=== PATIENT | male | born 1945 | race Caucasian/White ===

== ENCOUNTER 2019-03-12 15:25 | Outpatient (CLI) | payer MEDICARE, OTHER | END 2019-03-12 15:26 | disposition critical access hospital (66) | LOC: EMS 15:25 | PROVIDERS: ATTEND Surgery | DX: R20.2 Paresthesia of skin (principal); R47.9 Unspecified speech disturbances | CPT/HCPCS: A0425; A0427 ==

== ENCOUNTER 2019-03-12 15:40 | Emergency (ER) | payer MEDICARE, OTHER ==
--- NOTE | 2019-03-12 15:43 | ED Physician Documentation ---
History of Present Illness - Stated complaint Stated Complaint: R FACIAL NUMBNESS - History obtained from History obtained from: Patient - History of Present Illness Timing: Prior to arrival - Additonal information Additional information: Patient is a 73-year-old male with history of cardiac murmur, aortic valve disorder, and peripheral vascular disease with stent placed in right lower extremity presenting with concern for stroke symptoms just prior to arrival. Patient denies any inciting incident, trauma, or fall. At 230 this afternoon patient noted subjective right arm numbness and tingling sensation, as well as right facial numbness that resolved within 1 minute. Patient had no other symptoms at that time, but several minutes later he felt that his speech was not normal. Patient states he was stating the correct words, but sounded different than his baseline. Patient's came in from the garden and called the ambulance. While being evaluated by EMS, patient had another issue with word salad, which again happened upon his arrival to the ED in the ambulance bay as he was taken to the CT scanner. Currently, patient denies any complaints including paresthesias, paralysis, facial droop, speech changes, chest pain, abdominal pain, headache, vision changes, vomiting, urinary stool changes, other complaints. Patient does take a daily baby aspirin. No other anticoagulations. No other improving or worsening factors noted. Review of Systems Constitutional: denies: Fever, Chills Eyes: denies: Loss of vision Cardiac: denies: Chest pain / pressure Respiratory: denies: Dyspnea GI: denies: Abdominal Pain, Nausea, Vomiting : denies: Dysuria Neurologic: reports: Numbness, Difficulty speaking PD PAST MEDICAL HISTORY - Past Medical History Cardiovascular: High cholesterol, Valve disorder - Past Surgical History Past Surgical History: Yes Cardiovascular: Vascular surgery PD ED PE NORMAL - Vitals Vital signs reviewed: Yes - General General: Alert and oriented X 3, No acute distress, Well developed/nourished - HEENT HEENT: Atraumatic, PERRL (Gross visual acuity intact. No nystagmus.), EOMI, Moist mucous membranes, Pharynx benign - Cardiac Cardiac: RRR. 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 NIH 0.) - Psych Psych: Normal mood, Normal affect Results - Vitals Vitals: Vital Signs - 24 hr 03/12/19 03/12/19 03/12/19 15:55 16:44 17:00 Temperature Heart Rate 70 71 94 Respiratory 18 14 22 Rate Blood Pressure 174/93 H 157/78 H 157/83 H O2 Saturation 99 98 98 03/12/19 17:25 Temperature 37 C Heart Rate Respiratory Rate Blood Pressure O2 Saturation Oxygen O2 Source Room air - EKG (time done) 1558 Rate: Rate (enter#) (69) Rhythm: NSR Intervals: RBBB - Labs Labs: Laboratory Tests 03/12/19 03/12/19 03/12/19 16:01 16:01 16:01 WBC 5.7 RBC 4.69 L Hgb 14.2 Hct 44.2 MCV 94.2 H MCH 30.3 MCHC 32.1 RDW 12.1 Plt Count 168 MPV 10.9 Neut # (Auto) 2.9 Lymph # (Auto) 2.1 [place] # (Auto) 0.6 Eos # (Auto) 0.1 Baso # (Auto) 0.0 Absolute Nucleated RBC 0.00 Nucleated RBC % 0.0 PT 12.3 INR 1.1 APTT 27.2 Sodium 138 Potassium 3.9 Chloride 102 Carbon Dioxide 26 Anion Gap 10.0 BUN 29 H Creatinine 1.0 Estimated GFR (MDRD) 73 L Glucose 111 H Calcium 9.0 Total Bilirubin 1.0 AST 26 ALT 22 Alkaline Phosphatase 46 Troponin I Total Protein 6.7 Albumin 3.7 Globulin 3.0 Albumin/Globulin Ratio 1.2 Lipase 29 Urine Color Urine Clarity Urine pH Ur Specific [place] Urine Protein Urine Glucose (UA) Urine Ketones Urine Occult Blood Urine Nitrite Urine Bilirubin Urine Urobilinogen Ur Leukocyte Esterase Ur Microscopic Review Urine Culture Comments Blood Type Antibody Screen 03/12/19 03/12/19 03/12/19 16:01 16:01 16:20 WBC RBC Hgb Hct MCV MCH MCHC RDW Plt Count MPV Neut # (Auto) Lymph # (Auto) [place] # (Auto) Eos # (Auto) Baso # (Auto) Absolute Nucleated RBC Nucleated RBC % PT INR APTT Sodium Potassium Chloride Carbon Dioxide Anion Gap BUN Creatinine Estimated GFR (MDRD) Glucose Calcium Total Bilirubin AST ALT Alkaline Phosphatase Troponin I < 0.04 Total Protein Albumin Globulin Albumin/Globulin Ratio Lipase Urine Color YELLOW Urine Clarity CLEAR Urine pH 7.5 Ur Specific [place] 1.010 Urine Protein NEGATIVE Urine Glucose (UA) NEGATIVE Urine Ketones NEGATIVE Urine Occult Blood TRACE-INTA Urine Nitrite NEGATIVE Urine Bilirubin NEGATIVE Urine Urobilinogen 0.2 (NORMAL) Ur Leukocyte Esterase NEGATIVE Ur Microscopic Review NOT INDICATED Urine Culture Comments NOT INDICATED Blood Type O POSITIVE Antibody Screen NEGATIVE PD MEDICAL DECISION MAKING - ED course Complexity details: reviewed results, re-evaluated patient, considered differential, d/w patient, d/w change consultant ED course: Patient arrived and taken immediately to CT scanner where CT head without, as well as CTA head and neck obtained. Upon patient return to ED, evaluated patient immediately and found to have an NIH scale 0. Patient had no complaints. Physical exam does not reveal any neurological deficits, facial droop, speech changes, as well as no evidence of trauma or other signs of infection. EKG obtained which not show signs of particular arrhythmia or ischemic changes. Screening lab work and urinalysis also obtained which returned relatively unremarkable. During this time, tele-neurology also contacted who initially recommended no further intervention with TPA as patient was asymptomatic. CT head returned without evidence of bleed or other acute findings. However, patient had continued return of speech abnormalities and tele-neurology again consulted and evaluated patient. After lengthy discussions, all felt appropriate to initiate TPA. Still awaiting radiologist reads of CTAs, however, neurology able to view images and did not find critical stenosis from a vascular standpoint. Given critical nature, patient to be transferred. - Critical Care Time(min): 45 Time Includes: Direct patient care, Review records, Reassess patient, Coordinate care, Medical consult Data interpretation: Labs, See progress note Departure - Departure Disposition: 02 Transfer Acute Care Hosp Clinical Impression: Cerebrovascular accident (CVA) Qualifiers: CVA mechanism: unspecified Qualified Code(s): I63.9 - Cerebral infarction, unspecified Condition: Critical Instructions: Alteplase TPA injection
--- NOTE | 2019-03-12 16:02 | CT Report ---
Reason: numbness, unable to repeat words Procedure Date: 03/12/2019 Accession Number: [id number] / [id number] Procedure: CT - Head W/O Stroke Protocol CPT Code: FULL RESULT: EXAM: CT HEAD EXAM DATE: 03/12/2019 03:55 PM. CLINICAL HISTORY: Left facial droop, numbness, unable to repeat words. COMPARISON: None. TECHNIQUE: Multiaxial CT images were obtained from the foramen magnum to the vertex. Reformats: Sagittal and coronal. IV contrast: None. In accordance with CT protocol optimization, one or more of the following dose reduction techniques were utilized for this exam: automated exposure control, adjustment of mA and/or KV based on patient size, or use of iterative reconstructive technique. FINDINGS: Parenchyma: No intraparenchymal hemorrhage. No evidence of mass, shift. Hanson-white differentiation is distinct. Extraaxial Spaces: Basal cisterns are preserved. No subdural or epidural collections identified. Ventricles: Normal in size and position. Sinuses and Orbits: The underpneumatized left frontal sinuses opacified entirely with additional opacification of the ipsilateral air cells. Mild mucoperiosteal thickening seen in visualized portions of the left maxillary sinus. Orbits and mastoid air cells are unremarkable. Bones: No evidence of fracture or calvarial defect. Other: None. IMPRESSION: No acute intracranial hemorrhage. Opacified left sinuses as described. RADIA The critical test notification system was initiated by Dr. Jason Golden at 04:01 PM on 03/12/2019. The above critical test findings were discussed with Jessica Loving by Dr. Jason Golden at 04:04 PM on 03/12/2019.
[2019-03-12 16:07] LABS: BASOPHILS % (AUTO) 0.5 %; EOSINOPHILS # (AUTO) 0.1 10^3/uL (0.0-0.7); EOSINOPHILS % (AUTO) 1.6 %; HGB - HEMOGLOBIN 14.2 g/dL (14.0-18.0); LYMPHOCYTES # (AUTO) 2.1 10^3/uL (1.5-3.5); LYMPHOCYTES % (AUTO) 36.2 %; MEAN CORPUSCULAR HEMOGLOBIN 30.3 pg (27.0-31.0); MEAN CORPUSCULAR HGB CONC 32.1 g/dL (32.0-36.0); MEAN CORPUSCULAR VOLUME 94.2 fL (80.0-94.0); MEAN PLATELET VOLUME 10.9 fL (7.4-11.4); MONOCYTES # (AUTO) 0.6 10^3/uL (0.0-1.0); MONOCYTES % (AUTO) 10.2 %; NEUTROPHILS # (AUTO) 2.9 10^3/uL (1.5-6.6); NEUTROPHILS % (AUTO) 51.3 %; PLT - PLATELET COUNT 168 10^3/uL (130-450); RED BLOOD COUNT 4.69 10^6/uL (4.70-6.10); RED CELL DISTRIBUTION WIDTH 12.1 % (12.0-15.0); WHITE BLOOD COUNT 5.7 x10^3/uL (4.8-10.8)
[2019-03-12 16:20] LABS: ALBUMIN 3.7 g/dL (3.2-5.5); ALBUMIN/GLOBULIN RATIO 1.2 (1.0-2.2); TOTAL PROTEIN 6.7 g/dL (6.7-8.2)
[2019-03-12 16:41] LABS: BILIRUBIN,URINE NEGATIVE (NEGATIVE); GLUCOSE, URINE (UA) NEGATIVE (NEGATIVE); KETONES,URINE (UA) NEGATIVE (NEGATIVE); LEUKOCYTE ESTERASE, URINE NEGATIVE (NEGATIVE); NITRITE,URINE NEGATIVE (NEGATIVE); OCCULT BLOOD,URINE TRACE-INTA (NEGATIVE); PH,URINE 7.5 PH (5.0-7.5); PROTEIN,URINE NEGATIVE (NEGATIVE); UROBILINOGEN,URINE 0.2 (NORMAL) E.U./dL (NORMAL)
[2019-03-12 16:46] LABS: CLARITY,URINE CLEAR (CLEAR)
[2019-03-12 16:49] LABS: INR 1.1 (0.8-1.2); PT - PROTHROMBIN TIME 12.3 secs (9.9-12.6)
[2019-03-12 16:56] LABS: PARTIAL THROMBOPLASTIN TIME 27.2 secs (24.9-33.3)
[2019-03-12] MEDS ORDERED: IOVERSOL 320 100 ML VIAL IVP ONE ×2 (17:06→18:48)
[2019-03-12] MEDS ORDERED: ALTEPLASE IV STA (17:09)
[2019-03-12] MEDS ORDERED: WATER FOR INJECTION STERILE IV STA (17:09)
[2019-03-12] MEDS ORDERED: ALTEPLASE 100 MG VIAL IV ONE (17:10)
[2019-03-12] MEDS ORDERED: ALTEPLASE IV ONE (17:15)
[2019-03-12] MEDS ORDERED: WATER FOR INJECTION STERILE IV ONE (17:15)
--- NOTE | 2019-03-12 18:39 | CT Report ---
Reason: L sided facial droop, L neck pain Procedure Date: 03/12/2019 Accession Number: [id number] / [id number] Procedure: CT - ANGIO NECK W/WO CPT Code: FULL RESULT: EXAM: CT ANGIOGRAM HEAD AND NECK. CT SCAN HEAD WITH CONTRAST. EXAM DATE: 03/12/2019 03:59 PM. CLINICAL HISTORY: 73-year-old presenting with left-sided facial droop and left neck pain. Evaluate for intracranial pathology or vascular pathology. COMPARISON: Noncontrast CT head 03/12/2019. TECHNIQUE: Routine axial helical CTA imaging was performed from the aortic arch through the [place] of [place]. Routine axial CT imaging of the head was performed prior to and following contrast administration. Reconstructions: Routine multiplanar 3D MIP reconstructions. IV contrast: . NASCET Criteria are used for stenosis measurements. In accordance with CT protocol optimization, one or more of the following dose reduction techniques were utilized for this exam: automated exposure control, adjustment of mA and/or KV based on patient size, or use of iterative reconstructive technique. FINDINGS: CT SCAN HEAD: Parenchyma: No acute parenchymal hemorrhage, mass, or midline shift. Mild bilateral areas of white matter hypoattenuation seen that are age-indeterminate but appear chronic. There is no convincing CT evidence of acute infarct. Mild to moderate cortical volume loss. No abnormal postcontrast enhancement. Extra-axial Spaces: Sulci and cisterns appear prominent. There is prominent calcification seen along the anterior left interhemispheric falx that may represent dural calcification. No other definite abnormal extra-axial fluid collection/mass seen. Cisterns are patent. Ventricles: Normal in size and position. Sinuses and Orbits: Changes of bilateral lens replacement. Small left maxillary mucosal retention cyst versus polyp. Mild mucosal thickening of the anterior left ethmoid air cells with total opacification of the left frontal recess and small left frontal sinus. Mastoid air cells and middle ear cavities are clear. Bones: No evidence of fracture or calvarial defect. Other: Vascular calcifications of the cavernous ICA segments. CT ANGIOGRAM HEAD AND NECK: There is atherosclerotic plaque involving the aortic arch with no significant stenosis. Normal three-vessel takeoff of the great vessels. There is atherosclerotic aortic plaque involving the origins of the great vessels with no high-grade stenosis seen. RIGHT: Common Carotid Artery: Patent without significant stenosis. Carotid Bulb: There is mild atherosclerotic plaque at the bifurcation and siphon. Stenosis at the bifurcation by NASCET criteria: No significant stenosis. Internal Carotid Artery: The cervical ICA appears patent with no high-grade stenosis or definite dissection seen. There is atherosclerotic plaque involving the cavernous ICA segment with no high-grade stenosis seen. No evidence of aneurysm along the intracranial ICA. External Carotid Artery: Unremarkable. Vertebral Artery: Patent without significant stenosis. No evidence of dissection. No aneurysm. Anterior Cerebral Artery: Patent without significant stenosis, aneurysm, or vascular malformation. Middle Cerebral Artery: Patent without significant stenosis, aneurysm, or vascular malformation. Posterior Cerebral Artery: Patent without significant stenosis, aneurysm, or vascular malformation. Posterior Communicating Artery: Patent. No aneurysm. LEFT: Common Carotid Artery: Patent without significant stenosis. Carotid Bulb: There is moderate atherosclerotic plaque at the bifurcation and siphon. Stenosis at the bifurcation by NASCET criteria: Less than 50% stenosis. Internal Carotid Artery: The cervical ICA appears patent with no definite high-grade stenosis or dissection seen. There is atherosclerotic plaque involving the cavernous ICA segment with no high-grade stenosis. No evidence of aneurysm along the intracranial ICA. External Carotid Artery: Unremarkable. Vertebral Artery: Patent without significant stenosis. No evidence of dissection. No aneurysm. Anterior Cerebral Artery: Patent without significant stenosis, aneurysm, or vascular malformation. Middle Cerebral Artery: Patent without significant stenosis, aneurysm, or vascular malformation. Posterior Cerebral Artery: Patent without significant stenosis, aneurysm, or vascular malformation. Posterior Communicating Artery: Patent. No aneurysm. CENTRAL: Anterior Communicating Artery: Patent. No aneurysm. Basilar Artery: Patent without significant stenosis. No aneurysm. DURAL VENOUS SINUSES AND MAJOR CENTRAL VEINS: Patent. OTHER: Punctate calcification seen within the tonsillar crypts. Otherwise the visualized pharynx and larynx appear normal. Major salivary glands appear normal. Thyroid gland appears normal. No cervical lymphadenopathy or necrotic lymph nodes seen. Soft tissues of the neck appear normal. Pleural parenchymal scarring of the visualized lung apices. Dependent atelectatic changes. No acute fracture or traumatic subluxation of the cervical spine. Multilevel degenerative changes. No suspicious osseous lesion. There are anterior bridging osteophytes seen spanning C4-T2 that may represent diffuse idiopathic skeletal hyperostosis. IMPRESSION: CT SCAN HEAD: 1. No definite acute infarct seen. If there is clinical concern for acute stroke or symptoms persist an MR brain could be considered to evaluate for small or subtle pathology. ASPECTS: 10 right/10 left. 2. No acute intracranial hemorrhage, mass, hydrocephalus, or midline shift. No abnormal postcontrast enhancement. 3. Mild white matter changes seen that appear chronic suggesting potential sequela of chronic small vessel ischemic disease. CT ANGIOGRAM NECK: 1. There is atherosclerotic aortic plaque involving the left carotid bifurcation with less than 50% stenosis seen. 2. The right carotid artery and bilateral vertebral arteries appear patent with no high-grade stenosis or definite dissection seen. CT ANGIOGRAM HEAD: 1. No large vessel occlusion. 2. No aneurysm. No significant stenosis. OTHER 1. There are anterior bridging osteophytes seen spanning C4-T2 that may represent diffuse idiopathic skeletal hyperostosis. RADIA The call report notification system was initiated by Dr. Victor Manuel Lopez at 06:37 PM on 03/12/2019. The above call report findings were discussed with Jessica Loving by Dr. Victor Manuel Lopez at 06:41 PM on 03/12/2019.
[2019-03-12 19:32] VITALS: BP 151/71
== END 2019-03-12 19:45 | disposition short-term general hospital (02) ==
LOC: ED 15:40 → EDBD 15:40 → ED 19:45
DX: I63.9 Cerebral infarction, unspecified (principal); R47.9 Unspecified speech disturbances; R29.700 NIHSS score 0; I35.8 Other nonrheumatic aortic valve disorders; I73.9 Peripheral vascular disease, unspecified; E78.00 Pure hypercholesterolemia, unspecified; Z95.828 Presence of other vascular implants and grafts; Z79.82 Long term (current) use of aspirin
CPT/HCPCS: 36415; 37195; 70450; 70496; 70498; 80053; 81003; 83690; 84484; 85025; 85610; 85730; 86850; 86900; 86901; 93005; 99291; J2997; Q9967; 81001; 87086; 99285